=== PATIENT | male | born 1985 | race Caucasian/White ===

== ENCOUNTER 2021-12-03 22:17 | Emergency (ER) | payer SELFPAY ==
[~2021-12-03] VITALS: Ht 162.6 cm; Wt 83.5 kg
[2021-12-03 22:45] VITALS: BP_SYST 125
--- NOTE | 2021-12-03 22:51 | NUR ---
36 Y ROLD GABON[place] SPEAKING MALE WITH COMPLAINT OF LEFT KNEE PAIN AND SWELLING FOR ONE WEEK. PT DENIES TRAUMA. PT ACCOMPAINED BY SPOUSE. PENDING MD PULIDO
[2021-12-04] MEDS ORDERED: CEPH250C PO (00:03)
--- NOTE | 2021-12-04 00:10 | NUR ---
PT IN BED RESTING, PENDING DISPOSITION. WILL MONITOR NEEDED
--- NOTE | 2021-12-04 00:32 | NUR ---
PT DISCHRGED WITH [facility] INSTRUCTIONS IN [place]. PT ENCOUARGED TO FOLLOW UP WITH PRIMARY CARE DOCTOR. MD GREENE PROVIDED PT WITH OFF WORK NOTE. PT DEISCHARGED WITH ALL BELONGINGS IN STABLE CONDITION
== END 2021-12-04 00:31 | disposition home or self-care (01) ==
LOC: SED 22:17
DX: M25.562 Pain in left knee (principal); L03.116 Cellulitis of left lower limb
CPT/HCPCS: 73564; 99283